=== PATIENT | female | born 1990 | race Caucasian/White ===

== ENCOUNTER 2017-08-27 17:10 | Inpatient (IN) ==
--- NOTE | 2017-08-27 16:09 | OB/GYN History & Physical ---
Date of Encounter: 08/27/17 Time of Encounter: 16:00 Assessment and Plan (1) 38 weeks gestation of Current visit: Yes Status: Acute admitted for labor evaluation (2) History of section, low transverse Current visit: Yes Status: Acute Repeat c/s scheduled for 09/06/2017 History of Present Illness Chief complaint: Contractions HPI: Ms. Kessler is a 26 year old female @ 38w0d presents to labor and delivery with complaints of contractions that started last night around 0200 following intercourse. Patient also reports nausea, vomiting and diarrhea for past 24 hours. Patient last ate yesterday. Patient reports +FM. Denies LOF or VB. Patient reports history of 2 previous sections. Patient denies any complications with current . Blood type: O+ Rubella: Immune Hep B: Nonreactive GBS: Negative Past Med Surg Social Fam HX - Past Medical History Source: patient Medical history: no medical history Psychiatric history: no psych history - Past Surgical History Surgical History: - Social History Smoking Status: Never smoker Smokeless Tobacco Status: No Alcohol use: none Drug use: none Occupational status: employed Current living situation: Home - Independent Activity Level: Independent ambulation Recent Out of Country Travel Within the Last 8 Weeks: No Exposure or Possible Exposure to Illness During Travel: No - Family History Paternal Grandmother Living Status: Still Living Hx Family Endocrine Disorder: Yes (DM II) Obstetrical History - Pregnancies : 4 Para: 2 Term: 2 : 0 Ab's: 0 Livin Review of System OB - Constitutional Constitutional ROS IM: no chills, no fever(s), no headache(s) - Respiratory Respiratory: no dyspnea - Gastrointestinal Gastrointestinal: cramping, diarrhea, nausea, vomiting, no abdominal pain, no constipation, no heartburn - Genitourinary Genitourinary: no abnormal vaginal bleeding, no dysuria, no flank pain, no urinary frequency, no urinary urgency, no vaginal discharge, no vaginal odor Exam - Constitutional Constitutional: well developed, well nourished, no acute distress, average body habitus - HEENT HEENT: Normocephaly, Mucus Membranes Moist - Neck Neck exam: full ROM - Lungs Respiratory exam: CTAB - Cardiovascular Cardiovascular exam: RRR, +S1, +S2 - Abdomen Abdomen: Present: bowel sounds normal, gravid, non tender - Extremities Extremities exam: full ROM, normal capillary refill Deep Tendon Reflex Grade: 2+ Normal - Vagina Vagina: Present: normal moisture - Cervix Dilation: 2 (2.5 per RN) Effacement: 70 Station: -2 - Uterus Uterus exam: Present: normal size, normal contour - Comments Comments: 150 bpm moderate variability +15x15 accels no decels noted. Cat. 1 tracing Results All other labs normal. - VTE Reasons for not Prescribing Prophylaxis: Treatment not Indicated - Low risk for VTE
[2017-08-27 16:29] LABS: Amphetamine Screen,Urine Negative ng/mL (Cutoff=1000); Barbiturate Screen,Urine Negative ng/mL (Cutoff=200); Benzodiazepines Screen,Urine Negative ng/mL (Cutoff=200); Cannabinoid Screen,Urine Negative ng/mL (Cutoff = 50); Cocaine Screen,Urine Negative ng/mL (Cutoff= 300); Opiate Screen,Urine Negative ng/mL (Cutoff=300); Phencyclidine Screen,Urine Negative ng/mL (Cutoff=25)
[~2017-08-27 17:10] MED LIST: Clindamycin 900 MG/50 ML 900 MG/50 ML IV.SOLN IVPB ONE; Famotidine 20 MG/2 ML VIAL IVP ONE; Gentamicin 310 MG in 0.9 % Sodium Chloride 100 ML IVPB ONE; Metoclopramide 10 MG/2 ML VIAL IVP ONE; Oxytocin 20 units/ LR 1000 mL 20 UNIT/1,000 ML BAG IVC ONE
[2017-08-27] MEDS ORDERED: Ringers Solution, Lactated 1,000 ML IVC SCH (17:15)
--- NOTE | 2017-08-27 17:21 | OB Labor Progress Note ---
Date of Encounter: 08/27/17 Time of Encounter: 17:10 Labor Progress Note - Subjective Subjective: Patient reports contractions are getting stronger. - Cervix Cervix: 3.5/70-1 - Heart Tones Heart Tones: 155 bpm moderate variability +15x15 accels no decels noted. Cat. 1 tracing - [place]: 4-5 min apart per palpation - Interventions Interventions: Dr. Rich CAI notified. Plan to prep for repeat c/s. - Plan Plan: Prepare for repeat c/s
--- NOTE | 2017-08-27 17:26 | Anesthesia Evaluation PreOp ---
Date of Encounter: 08/27/17 Time of Encounter: 17:24 - Past History Planned Operation: C section Cardiac History: Denies any Significant Hx Pulmonary History: Denies Any Significant HX HAIRSPRING STAKER History: Denies Any Significant HX Other Medical History: GERD Anesthesia History: No Prior Anesthetic Complications, Past Anesthesia (c/s x2,) : Yes Test: Positive Alcohol Use: none Drug use: none Medications and Allergies 3 Allergy/AdvReac Type Severity Reaction Status Date / Time Amoxicillin Allergy Rash Verified 08/27/17 16:14 - Meds/Allergy Pre-op Review Medications Reviewed: Yes Allergies Reviewed: Yes Beta Blockers on Current Med List: No Anesthesia Exam - HEENT Pupil (Motor): Pupils equal Mallampati: II Teeth: Normal Oral Opening: Greater than 3 - HAIRSPRING STAKER LOC: Oriented HAIRSPRING STAKER Motor: Normal RUE, Normal LUE, Normal RLE, Normal LLE, Normal Face HAIRSPRING STAKER Sensory: Normal: RUE, LUE, RLE, LLE, Face - Cardiac Rhythm: Regular Murmur: None - Pulmonary Breath Sounds: bilateral Clear Respiratory Effort: Symmetrical Anesthesia Assess/Plan ASA Score: 2 Modified [place] Scale for Level of Consciousness: Cooperative, oriented, and tranquil Anesthetic Plan: Regional (SAB, risks discussed, questions answered, consented) Autologous Blood: No Monitoring Plan: Standard Monitors Recovery Plan: PACU
[2017-08-27] MEDS ORDERED: *HR* FentaNYL (PF) 100 MCG/2 ML VIAL ONE (17:29)
[2017-08-27] MEDS ORDERED: *HR* Oxytocin 10 UNIT/ML VIAL IM ONE ×2 (17:29→18:52)
[2017-08-27] MEDS ORDERED: *HR* Morphine Sulfate/PF 5 MG/10 ML AMPUL ONE (17:29)
[2017-08-27 17:35] LABS: Basophils % 0.2 %; Eosinophils % 0.2 %; Hematocrit 42.4 % (35.3-44.9); Hemoglobin 14.5 g/dL (11.5-15.4); Immature Granulocytes % 0.6 % (0-4); Lymphocytes # 1.3 K/mcL (0.6-4.6); Mean Corpuscular HGB Conc 34.2 g/dL (31.6-35.5); Mean Corpuscular Hemoglobin 32.8 pg (28.0-33.3); Mean Corpuscular Volume 95.9 fL (83.0-100.0); Mean Platelet Volume 10.7 fL (9.4-12.4); Monocytes # 0.6 K/mcL (0.0-1.3); Monocytes % 4.4 %; Neutrophils # 12.3 K/mcL (1.6-8.9); Platelet Count 202 K/mcL (140-400); Red Blood Count 4.42 M/mcL (3.82-4.97); Red Cell Distribution Width 14.1 % (11.5-14.5); Segmented Neutrophils % 85.6 %
[2017-08-27] MEDS ORDERED: Ringers Solution, Lactated 1,000 ML ONE ×2 (17:57→18:52)
[2017-08-27] MEDS ORDERED: Ondansetron 4 MG/2 ML VIAL ONE (18:06)
[2017-08-27] MEDS ORDERED: EPHEDrine 50 MG/ML VIAL ONE ×2 (18:18→18:22)
[2017-08-27] MEDS ORDERED: Ondansetron 4 MG/2 ML VIAL IVP PRN ×3 (18:33→21:35)
[2017-08-27] MEDS ORDERED: *HR* HYDROmorphone (PF) 1 MG/ML SYRINGE IVP PRN ×2 (18:33→21:35)
--- NOTE | 2017-08-27 18:33 | Anesthesia Procedures ---
Date of Encounter: 08/27/17 Time of Encounter: 18:31 Procedures: Anesthesia - Epidural/Spinal Patient ID/Chart reviewed: Yes Patient examined: Yes OB Eval: Gestational age: 36 OB Eval: : 3 OB Eval: Hx Para: 2 OB Eval: Dilated at (cm): 3 OB Eval: Contractions: Non-stressed pattern Consent Obtained: Yes Supplemental Oxygen: Nasal Cannula Supplemental Oxygen Rate (L/min): 3 Site Prep: Aseptic Technique, Sterile prep and drape Patient position: upright Local Anesthetic: Lidocaine 1% Amount of Local Anesthetic used: 3 Interspace Used: L2-L3 Loss of Resistance (FAHAD): No Blood: No CSF: Yes Paresthesia: No Spinal Needle Gauge: 25 Spinal Dose: marcaine 12mg, duramorph .25 mg, frentanyl 93 mcg Procedure: aseptic, tolerated well effective
--- NOTE | 2017-08-27 19:36 | OB/GYN Procedure Note ---
Section - Date of procedure: 08/27/17 Preop diagnosis: desires repeat , other (prior , laboring) Post-op diagnosis: same Procedure: section, repeat low transverse Surgeon: Peg Villanueva Estimated blood loss (cc): 500 Final Inspector Balance Wheel: Jeanine Dias Anesthesiologist: Catrachita Natarajan Battalion Chief: Terry Tavera Anesthesia Type: Spinal section complications: none Disposition: L&D Recovery Room Specimens: Cord blood - Infant (s) Infant A Delivery Date: 08/27/17 Delivery Time: 18:25 Presentation: vertex Gender: Female Viability: Viable Pounds: 6 Ounces: 3 Gram Weight: 2.805 kg at 1 minute: 9 at 5 minutes: 9 Specimens collected: cord blood Placenta: partial extraction Cord: nuchal cord, 3 umbilical vessels - Narrative Narrative: Patient was taken to the operative suite and placed under spinal anesthetic. She was then prepped vaginally and FHT's following were noted to be 80-90 without recovery. Betadine was poured on her abdomen and she was draped in normal sterile fashion in the dorsal supine position. Timeout was then performed. Antibiotics, clindamycin and gentamicin, were given at room time. SCDs are on and active. Pfannenstiel skin incision is then made and carried through to underlying layer of fascia with the Bovie. The fascia was then incised in the midline and incision extended laterally with the Moreira scissors. The fascia was tented up and dissected off the rectus muscles sharply. The rectus muscles were in the midline and the peritoneum was tented up and entered sharply with the Metzenbaum scissors. Adhesions were noted from the uterine serosa to the fascia which were taken down sharply. The peritoneal incision was then extended bluntly. The bladder blade was then inserted and the vesicouterine peritoneum was identified. A low transverse uterine incision was then made. The infant vertex was brought to the incision and the infant was delivered using fundal pressure. There was a loose nuchal cord which was delivered through. Cord was clamped and cut. Infant was handed to waiting nursery staff. Placenta delivered spontaneously complete and intact with a three-vessel cord. The uterus was cleared of all clots and debris using moist laparotomy sponge. The uterine incision was then closed using 0 Vicryl in a running locked fashion. A second layer of the same suture was used to obtain excellent hemostasis. The area of the sharp dissection of the adhesion was then ligated using multiple 0 Vicryl and 4-0 Vicryl sutures to obtain hemostasis. The abdomen was then cleared of all clots and debris using copious irrigation. The fascial incision was then closed using 0 Vicryl in a running fashion. The skin was closed using 4-0 Vicryl in a subcuticular fashion. Steri-Strips and sterile dressing are then placed. Paper tape was used in place of Medipore tape due to patient sensitivity to prior dressing. Mother and infant taken to recovery in stable condition.
[2017-08-27] MEDS ORDERED: Acetaminophen 325 MG TABLET PO PRN (21:35)
[2017-08-27] MEDS ORDERED: Sennosides 8.6 MG TABLET PO PRN (21:35)
[2017-08-27] MEDS ORDERED: Simethicone 80 MG TAB.CHEW PO PRN (21:35)
[2017-08-27] MEDS ORDERED: Oxytocin 20 units/ LR 1000 mL 20 UNIT/1,000 ML BAG IVC SCH ×2 (21:35)
[2017-08-27] MEDS ORDERED: Metoclopramide 10 MG/2 ML VIAL IVP PRN (21:35)
[2017-08-27] MEDS ORDERED: Scopolamine Patch 1.5 MG PATCH.TD72 TD ONE (21:42)
[2017-08-28] MEDS: *HR* OxyCODONE/APAP 5/325 TABLET PO PRN ×3 (04:41→23:11)
[2017-08-28 04:48] LABS: Basophils % 0.1 %; Hematocrit 31.1 % (35.3-44.9); Immature Granulocytes % 0.5 % (0-4); Lymphocytes # 0.9 K/mcL (0.6-4.6); Lymphocytes % 5.1 %; Mean Corpuscular HGB Conc 33.4 g/dL (31.6-35.5); Mean Corpuscular Hemoglobin 32.4 pg (28.0-33.3); Mean Corpuscular Volume 96.9 fL (83.0-100.0); Mean Platelet Volume 10.5 fL (9.4-12.4); Monocytes # 0.9 K/mcL (0.0-1.3); Monocytes % 4.9 %; Neutrophils # 15.9 K/mcL (1.6-8.9); Platelet Count 189 K/mcL (140-400); Red Blood Count 3.21 M/mcL (3.82-4.97); Red Cell Distribution Width 14.3 % (11.5-14.5); Segmented Neutrophils % 89.4 %
[2017-08-28 04:53] LABS: Hemoglobin 10.4 g/dL (11.5-15.4)
[2017-08-28] MEDS ORDERED: Ringers Solution, Lactated 1,000 ML ONE (08:47)
--- NOTE | 2017-08-28 09:30 | OB/GYN Progress Note ---
Date of Encounter: 08/28/17 Time of Encounter: 09:30 - Assessment and Plan (1) Status post repeat low transverse section Current Visit: Yes Status: Acute We will discharge home in a.m. if stable and afebrile we will give prescription for pain medication today so she can have filled prior to discharge. Subjective - Subjective Interval history: Patient's doing well this morning minimal pain minimal bleeding. Patient was a last night not sure she wants to go home today. Patient is tolerating liquids diet has not been advanced yet. Did recommend keeping her until tomorrow if she changes her mind and would like to go home later today we can send her home. Because of the holidays give her prescription for Percocet 5 mg now so she will get that filled prior to being discharged. Patient reports: appetite normal, pain well controlled, ambulating normally [place]: doing well, nursing well Objective - Vital Signs Latest vital signs: Vital Signs Temp Pulse Resp BP Pulse Ox 08/28/17 09:21 98.0 F 84 16 96/59 08/28/17 04:30 98.4 F 67 14 98/60 95 08/28/17 01:10 98.2 F 82 16 101/60 95 08/28/17 00:00 98.1 F 97 14 101/66 95 08/27/17 23:00 98.3 F 92 14 113/73 95 08/27/17 22:30 98.2 F 101 14 100/68 97 08/27/17 22:00 98 F 100 14 111/71 96 Intake and Output 08/27/17 08/28/17 08/28/17 23:59 07:59 15:59 Intake Total 1100 / 1100 Output Total 200 / 200 Balance -200 / -200 1100 / 1100 Intake: Oral 1100 / 1100 Output: Emesis 200 / 200 Other: Meal Breakfast Percent of Meal Consumed 100% - Exam Lungs: bilateral: normal Chest: Normal S1, Normal S2 Extremities: Present: normal Abdomen: Present: normal appearance, soft Incision: Present: normal, dry, intact Uterus: Present: normal - Labs Labs: Laboratory Results - last 24 hr 08/27/17 08/27/17 08/28/17 16:00 17:26 04:33 WBC 14.4 H 17.8 H RBC 4.42 3.21 L Hgb 14.5 10.4 L D Hct 42.4 31.1 L MCV 95.9 96.9 MCH 32.8 32.4 MCHC 34.2 33.4 RDW 14.1 14.3 Plt Count 202 189 MPV 10.7 10.5 Immature Gran % 0.6 0.5 Seg Neutrophils % 85.6 89.4 Lymphocytes % 9.0 5.1 Monocytes % 4.4 4.9 Eosinophils % 0.2 0.0 Basophils % 0.2 0.1 Neutrophils # 12.3 H 15.9 H Lymphocytes # 1.3 0.9 Monocytes # 0.6 0.9 Eosinophils # 0.0 0.0 Basophils # 0.0 0.0 Urine Opiates Screen Negative Ur Barbiturates Screen Negative Ur Phencyclidine Scrn Negative Ur Amphetamines Screen Negative U Benzodiazepines Scrn Negative Urine Cocaine Screen Negative U Marijuana (THC) Screen Negative
[2017-08-28] MEDS: Prenatal Vit/FA 1 EACH TABLET PO SCH (11:20)
[2017-08-28] MEDS: Ibuprofen 600 MG TABLET PO PRN ×2 (11:53→21:15)
[2017-08-29] MEDS: Ibuprofen 600 MG TABLET PO PRN (03:11)
--- NOTE | 2017-08-29 06:51 | Discharge Summary ---
Date of Encounter: 08/29/17 Time of Encounter: 07:15 - Discharge Diagnosis (1) Status post repeat low transverse section Priority: Primary Status: Acute - Discharge Medications Prescriptions: Oxycodone HCl/Acetaminophen [Percocet 5-325 mg Tablet] 1 each PO Q4HR PRN #42 tablet PRN Reason: Severe Pain Ibuprofen [Motrin] 800 mg PO Q8HR PRN #30 tablet PRN Reason: Pain Home Medications: Vit #108/Iron/FA [ One Tablet] 1 tab PO DAILY 08/27/17 [History ] Ibuprofen [Motrin] 800 mg PO Q8HR PRN #30 tablet 08/28/17 [Rx] Oxycodone HCl/Acetaminophen [Percocet 5-325 mg Tablet] 1 each PO Q4HR PRN #42 tablet 08/28/17 [Rx] Allergies/Adverse Reactions: 3 Allergy/AdvReac Type Severity Reaction Status Date / Time Amoxicillin Allergy Rash Verified 08/27/17 16:14 Data Procedures and tests throughout hospitalization: Laboratory Tests 08/27/17 08/27/17 08/28/17 16:00 17:26 04:33 WBC 14.4 H 17.8 H RBC 4.42 3.21 L Hgb 14.5 10.4 L D Hct 42.4 31.1 L MCV 95.9 96.9 MCH 32.8 32.4 MCHC 34.2 33.4 RDW 14.1 14.3 Plt Count 202 189 MPV 10.7 10.5 Immature Gran % 0.6 0.5 Seg Neutrophils % 85.6 89.4 Lymphocytes % 9.0 5.1 Monocytes % 4.4 4.9 Eosinophils % 0.2 0.0 Basophils % 0.2 0.1 Neutrophils # 12.3 H 15.9 H Lymphocytes # 1.3 0.9 Monocytes # 0.6 0.9 Eosinophils # 0.0 0.0 Basophils # 0.0 0.0 Urine Opiates Screen Negative Ur Barbiturates Screen Negative Ur Phencyclidine Scrn Negative Ur Amphetamines Screen Negative U Benzodiazepines Scrn Negative Urine Cocaine Screen Negative U Marijuana (THC) Screen Negative Date of admission: 08/27/17 17:10 Primary care physician: florence Discharging clinician: Alberto Fagan Anticipated date of discharge: 08/29/17 - Patient Status Disposition: Home, Self-Care Condition: Good Functional capacity at discharge: independent ambulation Overall status at discharge: patient is progressing back to baseline - Discharge Instructions Follow Up With: NONE,PCP [Primary Care Provider] - Peg Villanueva DO [Partnered Physician] - - Diet and Activity Activity: increase activity as tolerated Diet: advance to your usual diet Hospital Course Procedures: Repeat low transverse section Reason for admission: active labor Delivery: section Episiotomy: none Laceration: none Other procedures: none complications: none Discharge diagnosis: IUP at term delivered Hospital course: Patient is a 26-year-old female who presented to labor and delivery at 38 weeks in active labor. Patient had been saw all day and was saw every 2 minutes on admission. Patient has a known history of 2 previous sections and she was taken in for a repeat section. Surgery went without any complications patient's hospital course was unremarkable. By hospital day #1 patient is doing well did not want to go home because she was not sure how she would feel after the Duramorph with off. Did advise her we could watch another 24 hours and sent home the next morning if she was stable. Patient did well she will be discharged home with prescription for Percocet 5 mg #28, Motrin 600 mg #30 iron sulfate 325 mg. She will follow up with Dr. Villanueva in 2 weeks. Patient's condition at the time of discharge was stable. Time Attestation: Total time spent providing and/or coordinating discharge services: - VTE Reasons for not Prescribing Prophylaxis: Treatment not Indicated - Low risk for VTE Documentation of Mechanical Device: Intermittent pneumatic compression device Exam - Constitutional Vitals: Temp Pulse Resp BP Pulse Ox 98.2 F 84 16 95/61 97 08/28/17 19:49 08/28/17 19:49 08/28/17 19:49 08/28/17 19:49 08/28/17 19:49 General appearance IM: mild distress, A&O X 3 - Respiratory Respiratory exam: Present: CTAB - Cardiovascular Cardiovascular exam IM: Present: RRR - GI/Abdominal GI/Abdominal exam IM: normal bowel sounds Incision: normal, dry, intact, dressed - Rectal Rectal exam: deferred - Uterus Position: At Umbilicus
[2017-08-29] MEDS: *HR* OxyCODONE/APAP 5/325 TABLET PO PRN (07:11)
[2017-08-29] MEDS: Prenatal Vit/FA 1 EACH TABLET PO SCH (07:11)
[2017-08-29] MEDS ORDERED: *HR* HYDROmorphone (PF) 1 MG/ML SYRINGE IVP PRN (08:25)
[2017-08-29 08:46] VITALS: BP 89/55
== END 2017-08-29 10:00 | disposition home or self-care (01) | DRG 766 ==
LOC: 1NENULAB → 1NENUOBS 21:51
PROVIDERS: ADMIT Advanced Practice Midwife; ATTEND Advanced Practice Midwife